=== PATIENT | male | born 1985 | race Caucasian/White ===

== ENCOUNTER 2017-01-05 16:53 | Emergency (ER) | payer MEDICAID, OTHER ==
[~2017-01-05] VITALS: Wt 60.0 kg
[~2017-01-05 16:53] MED LIST: CEPH-443 PO
[2017-01-05] MEDS ORDERED: ACETAMINOPHEN 500 MG TAB PO STA (18:35)
[2017-01-05] MEDS ORDERED: ONDANSETRON (ODT) 4 MG TAB ODT STA (18:35)
[2017-01-05] MEDS ORDERED: ACET500C5 PO (18:50)
[2017-01-05] MEDS ORDERED: BISM262O23 PO (18:50)
[2017-01-05] MEDS ORDERED: ONDA8TAB14 PO (18:50)
[2017-01-05] MEDS ORDERED: FLUT9.9S NASAL (18:51)
--- NOTE | 2017-01-05 18:54 | ERD ---
ER Documentation Chief Complaint Date/Time DATE: 01/05/17 TIME: 18:53 Chief Complaint DIARRHEA AND NAUSEA BUT NO VOMITING MILD HEADACHE. MILD ABDOMINAL PAIN HPI This 31-year-old male presents with nausea and diarrhea since this morning. He also has additional multiple complaints of occipital headache for last several months. He has a remote head injury. He has noticed complaint of right nasal congestion with a history of fracture in laceration of his nose several years ago. Denies abdominal pain, blood or bilious vomiting. Denies fevers. Denies any foreign travel or sick contacts. ROS All systems reviewed and are negative except as per history of present illness. Medications Home Meds Active Scripts Fluticasone Propionate (Flonase Allergy Relief) 9.9 Ml [place].susp, 1 SPRAY NASAL DAILY, #1 BOTTLE TO EACH NOSTRIL Prov:TAN KIMBROUGH MD 01/05/17 Bismuth Subsalicylate* (Pepto-Bismol*) 262 Mg/15 Ml Oral.susp, 15 ML PO Q3H Y for DIARRHEA for 4 Days, ML Prov:TAN KIMBROUGH MD 01/05/17 Acetaminophen* (Tylophen*) 500 Mg Capsule, 1 CAP PO Q6H Y for PAIN AND OR ELEVATED TEMP, #15 CAP Prov:TAN KIMBROUGH MD 01/05/17 Ondansetron (Ondansetron Odt) 8 Mg Tab.rapdis, 8 MG PO Q6H Y for NAUSEA AND/OR VOMITING, #8 TAB Prov:TAN KIMBROUGH MD 01/05/17 Cephalexin* (Keflex*) 500 Mg Capsule, 500 MG PO QID for 7 Days, CAP Prov:MILTON NUNES PA-C 04/22/16 Allergies Allergies: Coded Allergies: No Known Allergy (Unverified , 04/24/16) PMhx/Soc Medical and Surgical Hx: pt denies Medical Hx, pt denies Surgical Hx Hx Alcohol Use: No Hx Substance Use: No Hx Tobacco Use: No Smoking Status: Never smoker Physical Exam Vitals Vital Signs Date Time Temp Pulse Resp B/P Pulse Ox O2 Delivery O2 Flow Rate FiO2 01/05/17 17:06 98.9 98 21 140/70 98 Physical Exam Const: [] Alert, [id number]. Head: Atraumatic Eyes: Normal Conjunctiva ENT: Normal External Ears, Nose and Mouth. Patient has nasal deformity due to previous trauma. His right nasal congestion without septal hematoma. Neck: Full range of motion..~ No meningismus. There is reproducible headache in the left cervical paraspinous muscles. Resp: Clear to auscultation bilaterally Cardio: Regular rate and rhythm, no murmurs Abd: Soft, non tender, non distended. Normal bowel sounds Skin: No petechiae or rashes Back: No midline or flank tenderness Ext: No cyanosis, or edema Neur: Awake and alert Psych: Normal Mood and Affect Results 24 hrs Current Medications Medications (Trade) Dose Ordered Sig/Jaz Route PRN Reason Start Time Stop Time Status Last Admin Dose Admin Ondansetron HCl (Zofran Odt) 8 mg ONCE STAT ODT 01/05/17 18:35 01/05/17 18:37 DC 01/05/17 18:44 Acetaminophen (Tylenol Tab) 500 mg ONCE STAT PO 01/05/17 18:35 01/05/17 18:37 DC 01/05/17 18:43 Procedures/MDM Patient presents with multiple complaints of vomiting diarrhea since this morning without signs or symptoms to suggest acute abdomen, bacterial infection. He has appears to be a tension headache as well as nasal congestion likely due to previous trauma. It was treated with Zofran, Tylenol, Flonase and instructions to follow-up his primary doctor this week although he was returned to [facility] as well. The patient was stable with no new complaints during the ER course. Clinically, there is no current evidence to suggest meningitis, sepsis, acute abdomen, pneumonia, acute coronary syndrome , pulmonary embolism, or any other emergent condition appearing to require further evaluation or hospitalization. The patient should certainly return for any new or worsening symptoms per the aftercare instructions. They should otherwise follow-up with her primary care doctor for reevaluation this week. Departure Diagnosis: Primary Impression: Headache Headache type: unspecified Headache chronicity pattern: unspecified pattern Intractability: not intractable Qualified Code: R51 - Nonintractable headache, unspecified chronicity pattern, unspecified headache type Additional Impression: Vomiting and diarrhea Condition: Stable Patient Instructions: Self-Care for Vomiting and Diarrhea, Headache, Unspecified, Vomiting (6Y-Adult) [facility] Usted se elise hecho un examen mdico de control que le indica que no est en jin condicin que requiera tratamiento urgente en el Departamento de Emergencia. Un estudio ms profundo y el tratamiento de ogden condicin pueden esperar sin ningn riesgo hasta que usted sea atendida/o en el consultorio de ogden mdico o jin cl willy. Es responsabilidad suya arreglar jin ryan para el seguimiento del gilmer. MANEJO DE CONDICIONES NO URGENTES EN EL FUTURO 1) Si usted tiene un mdico de atencin primaria: Usted debera llamar a ogden mdico de atencin primaria antes de venir al departamento de emergencia. Despus de las horas de consultorio, ogden doctor o ogden asociado/a est disponible por telfono. El mdico o enfermero de viviane en el servicio telefnico puede asesorarle por anthony medio para atender el problema, o gilmer contrario se puede programar jin ryan. 2) Si usted no tiene un mdico de atencin primaria: Llame al mdico o clnica de referencia que aparece abajo jaron las horas de consultorio para hacer jin ryan para que le vean. CLINICAS: [facility] [phone] [facility] [phone] [facility] [phone] [facility] [phone] [place] [phone] [address] [facility] [phone] [address] Additional Instructions: Recommend primary doctor for further evaluation and treatment. Recheck otherwise for new or worsening symptoms. Likely viral illness may last 2-4 days. TAN KIMBROUGH MD Jan 05, 2017 18:54
== END 2017-01-05 19:25 | disposition home or self-care (01) ==
LOC: FTE 16:53
DX: R51 Headache (principal); R11.10 Vomiting, unspecified
CPT/HCPCS: Z7502; Z7610; 99283

== ENCOUNTER 2018-02-13 15:36 | Emergency (ER) | END 2018-02-13 19:25 | disposition home or self-care (01) ==